=== PATIENT | male | born 1980 | race Caucasian/White ===

== ENCOUNTER 2020-10-21 06:45 | Emergency (ER) | payer OTHER, MEDICAID ==
[~2020-10-21] VITALS: Ht 170.2 cm; Wt 82.0 kg
[~2020-10-21 06:45] MED LIST: AMOX-424 MT; BUPR75TA8 MT; INSU100I24 SQ; LURA120T MT; TRAZ-251 MT
[2020-10-21 07:54] LABS: BASOPHILS % 1.3 % (0.0-2.0); EOSINOPHILS % 2.2 % (0.0-5.0); HEMOGLOBIN. 10.7 g/dL (14.0-18.0); LYMPHOCYTES % 12.9 % (20.0-50.0); MEAN CORPUSCULAR HEMOGLOBIN 29.5 pg (28.0-32.0); MEAN CORPUSCULAR VOLUME 93.5 fL (80.0-94.0); MEAN PLATELET VOLUME 9.8 fl (7.4-10.4); NEUTROPHILS % 79.6 % (40.0-76.0); PLATELET 345 x1000/uL (130-400); RED BLOOD CELL COUNT 3.63 mill/uL (4.7-6.1); RED CELL DISTRIBUTION WIDTH 14.1 % (11.6-14.6)
[2020-10-21 07:58] LABS: CLARITY URINE CLEAR (CLEAR); COLOR URINE YELLOW (YELLOW); KETONES URINE 2+ (NEGATIVE); LEUKOCYTE ESTERASE URINE NEGATIVE (NEGATIVE); NITRITE URINE NEGATIVE (NEGATIVE); OCCULT BLOOD URINE 1+ (NEGATIVE); PH URINE 5.5 (4.5-8.0); PROTEIN URINE 3+ (NEGATIVE); SPECIFIC GRAVITY URINE 1.019 (1.005-1.030); UROBILINOGEN URINE 0.2 E.U./dL (0.2-1.0)
[2020-10-21 08:00] LABS: CHLORIDE 103 mEq/L (98-107)
[2020-10-21] MEDS ORDERED: INSULIN REGULAR (HUMULIN R) 300UNITS/3ML VIAL SUBCUT ONE (08:00)
[2020-10-21 08:22] LABS: *AMPHETAMINES SCREEN URINE NEGATIVE (NEGATIVE); *BARBITURATES SCREEN URINE NEGATIVE (NEGATIVE); *BENZODIAZEPINES SCREEN URINE NEGATIVE (NEGATIVE); *COCAINE SCREEN URINE NEGATIVE (NEGATIVE); METHADONE URINE SCREEN NEGATIVE (NEGATIVE)
[2020-10-21 08:23] LABS: CANNABINOID URINE SCREEN PRESUMTIVE POSITIVE (NEGATIVE); OPIATES URINE SCREEN NEGATIVE (NEGATIVE); PHENCYCLIDINE URINE SCREEN NEGATIVE (NEGATIVE)
[2020-10-21] MEDS ORDERED: CALCIUM GLUCONATE 100MG/ML 10ML VIAL IV ONE (08:30)
[2020-10-21] MEDS ORDERED: SODIUM POLYSTYRENE SULFONATE 15 G/60 ML BOT PO ONE (08:30)
[2020-10-21] MEDS ORDERED: SODIUM BICARBONATE 8.4% 1 MEQ/ML 50ML SYR IV ONE (08:30)
[2020-10-21 12:28] VITALS: BP 186/86
== END 2020-10-21 13:06 | disposition left against medical advice (07) ==
LOC: ER 06:45 → CANBEDREQ 16:00
DX: E87.5 Hyperkalemia (principal); I12.9 Hypertensive chronic kidney disease with stage 1 through stage 4 chronic kidney disease, or unspecified chronic kidney disease; N18.9 Chronic kidney disease, unspecified; R60.1 Generalized edema; J84.9 Interstitial pulmonary disease, unspecified
CPT/HCPCS: 36415; 71045; 80053; 80305; 81003; 82962; 84484; 85025; 93005; 96372; 96374; 96375; 99285; J0610; J1815; J3490; Z7610

== ENCOUNTER 2022-05-30 04:38 | Inpatient (IN) | payer MEDICAID, OTHER ==
[2022-05-30] VITALS (63 sets, daily range): BP systolic 95–218; BP diastolic 59–150
[~2022-05-30] VITALS: Ht 175.3 cm; Wt 91.6 kg
[2022-05-30] MEDS ORDERED: NITROGLYCERIN 50MG PREMIX 250 ML IV ONE ×2 (04:45→05:15)
[2022-05-30] MEDS ORDERED: LORAZEPAM 2MG/ML CPJ IV ONE (05:15)
[2022-05-30 05:22] LABS: BASOPHILS % 1.3 % (0.0-2.0); EOSINOPHILS % 2.6 % (0.0-5.0); HEMATOCRIT. 39.1 % (42.0-52.0); HEMOGLOBIN. 12.9 g/dL (14.0-18.0); LYMPHOCYTES % 12.7 % (20.0-50.0); MEAN CORPUSCULAR HEMOGLOBIN 29.3 pg (28.0-32.0); MEAN CORPUSCULAR VOLUME 88.8 fL (80.0-94.0); MEAN PLATELET VOLUME 8.4 fl (7.4-10.4); MONOCYTES % 7.1 % (2.0-8.0); NEUTROPHILS % 76.3 % (40.0-76.0); PLATELET 481 x1000/uL (130-400); RED BLOOD CELL COUNT 4.41 mill/uL (4.7-6.1); RED CELL DISTRIBUTION WIDTH 20.6 % (11.6-14.6)
[2022-05-30 05:27] LABS: INR 0.9; PROTHROMBIN TIME 9.9 sec (9.6-11.0)
[2022-05-30 06:06] LABS: BG BASE EXCESS 3.2 mmol/L (-2.0-2.0); BG CARBOXYHEMOGLOBIN 1.4 % (0.5-1.5); BG DEOXYHEMOGLOBIN 10.1 % (0.0-5.0); BG FRACTION INSPIRED OXYGEN 100; BG HCO3 ACT 27.3 mmol/L (22.0-26.0); BG METHEMOGLOBIN 0.2 % (0.0-1.5); BG OXYGEN SATURATION 89.7 % (92.0-98.5); BG OXYHEMOGLOBIN 88.3 % (94.0-97.0); BG PCO2 40.1 mmHg (35.0-45.0); BG PH 7.451 (7.350-7.450); BG PO2 55.6 mmHg (75.0-100.0); BG SAMPLE SITE LEFT BRACHIAL; BG VENT MODE MASK - NRB
[2022-05-30 06:11] LABS: CHLORIDE 100 mEq/L (98-107)
[2022-05-30] MEDS ORDERED: FUROSEMIDE 40MG/4ML VIAL IVP SCH (08:30)
[2022-05-30] MEDS ORDERED: SODIUM POLYSTYRENE SULFONATE 15 G/60 ML BOT PO SCH (08:30)
[2022-05-30] MEDS ORDERED: DEXTROSE 50% WATER 50ML SYRINGE IV SCH (08:30)
[2022-05-30] MEDS ORDERED: IPRATROPIUM/ALBUTEROL 0.5-3(2.5)MG/3ML NEB HHN PRN (08:30)
[2022-05-30] MEDS ORDERED: IPRATROPIUM/ALBUTEROL 0.5-3(2.5)MG/3ML NEB HHN SCH ×2 (08:30→12:00)
[2022-05-30] MEDS ORDERED: INSULIN REGULAR (HUMULIN R) 300UNITS/3ML VIAL IV SCH (08:30)
[2022-05-30] MEDS ORDERED: CLONIDINE 0.1MG TABLET PO PRN (08:45)
[2022-05-30] MEDS ORDERED: ONDANSETRON HCL 4MG/2ML INJ IV PRN (08:45)
[2022-05-30] MEDS ORDERED: IPRATROPIUM/ALBUTEROL 0.5-3(2.5)MG/3ML NEB NEB PRN (08:45)
[2022-05-30] MEDS ORDERED: ACETAMINOPHEN 325MG TABLET PO PRN (08:45)
[2022-05-30] MEDS ORDERED: GUAIFENESIN 200MG/10ML SUGAR FREE UDC PO PRN (08:45)
[2022-05-30] MEDS ORDERED: DOCUSATE SODIUM 100MG CAPSULE PO PRN (08:45)
[2022-05-30] MEDS ORDERED: CALCIUM GLUCONATE 1GM PREMIX 50 ML IV SCH (09:00)
[2022-05-30] MEDS: FUROSEMIDE 40MG/4ML VIAL IV SCH (09:35)
[2022-05-30] MEDS ORDERED: PNEUMOCOCCAL 23-VAL P-SAC VAC 0.5 ML IM ONE (09:45)
[2022-05-30] MEDS ORDERED: INFLUENZA VACCINE 05/PF 0.5 ML SYRINGE IM ONE (09:45)
[2022-05-30 09:58] LABS: TOTAL IRON BINDING CAPACITY 231 ug/dL (250-450)
[2022-05-30] MEDS: DIPHENHYDRAMINE 50MG/ML VIAL IV PRN ×3 (10:06→22:32)
[2022-05-30] MEDS: ENOXAPARIN 30MG/0.3ML SYR SUBCUT SCH (10:06)
[2022-05-30] MEDS: IPRATROPIUM/ALBUTEROL 0.5-3(2.5)MG/3ML NEB NEB SCH ×3 (10:20→20:11)
[2022-05-30 10:24] LABS: BG BASE EXCESS 1.2 mmol/L (-2.0-2.0); BG DEOXYHEMOGLOBIN 2.2 % (0.0-5.0); BG FRACTION INSPIRED OXYGEN 100; BG HCO3 ACT 25.1 mmol/L (22.0-26.0); BG METHEMOGLOBIN 0.2 % (0.0-1.5); BG OXYGEN SATURATION 97.8 % (92.0-98.5); BG OXYHEMOGLOBIN 97.6 % (94.0-97.0); BG PH 7.449 (7.350-7.450); BG PO2 107.7 mmHg (75.0-100.0); BG TOTAL HEMOGLOBIN 11.5 g/dL (12.0-18.0); BG VENT MODE MASK - BIPAP
[2022-05-30 12:46] LABS: HEPATITIS B SURFACE ANTIGEN NEGATIVE
[2022-05-30] MEDS ORDERED: HYDRALAZINE HCL 25MG TABLET PO SCH (14:00)
[2022-05-30] MEDS ORDERED: NIFEDIPINE XL 60MG TAB PO SCH (15:30)
[2022-05-30] MEDS: HYDRALAZINE HCL 25MG TABLET PO SCH ×2 (15:50→22:22)
[2022-05-30] MEDS: LOSARTAN POTASSIUM 50 MG TABLET PO SCH (15:50)
[2022-05-30] MEDS ORDERED: AMLODIPINE 10MG TABLET PO SCH (16:00)
[2022-05-30] MEDS: CLONIDINE 0.2MG TABLET PO SCH (17:38)
[2022-05-30] MEDS: NICARDIPINE 50 MG in SODIUM CHLORIDE 0.9% 230 ML IV PRN (20:02)
[2022-05-30] MEDS: ATORVASTATIN CALCIUM 40MG TABLET PO SCH (22:21)
[2022-05-30] MEDS: FAMOTIDINE 20MG TABLET PO SCH (22:22)
[2022-05-31] VITALS (40 sets, daily range): BP systolic 105–165; BP diastolic 39–82
[2022-05-31] MEDS ORDERED: INSULIN LISPRO 100 UNITS/ML SUBCUT NR (01:30)
[2022-05-31] MEDS ORDERED: DEXTROSE 50% WATER 50ML SYRINGE IV PRN (01:30)
[2022-05-31] MEDS: IPRATROPIUM/ALBUTEROL 0.5-3(2.5)MG/3ML NEB NEB SCH ×4 (01:31→20:19)
[2022-05-31] MEDS: NICARDIPINE 50 MG in SODIUM CHLORIDE 0.9% 230 ML IV PRN (02:57)
[2022-05-31] MEDS ORDERED: INSULIN REGULAR (HUMULIN R) 300UNITS/3ML VIAL IV NR ×2 (03:15→06:45)
[2022-05-31] MEDS ORDERED: INSULIN GLARGINE 100 UNITS/ML SUBCUT NR ×2 (03:15→04:15)
[2022-05-31 03:22] LABS: BG BASE EXCESS -2.6 mmol/L (-2.0-2.0); BG CARBOXYHEMOGLOBIN 0.1 % (0.5-1.5); BG DEOXYHEMOGLOBIN 1.1 % (0.0-5.0); BG FRACTION INSPIRED OXYGEN 100; BG HCO3 ACT 21.1 mmol/L (22.0-26.0); BG METHEMOGLOBIN 0.1 % (0.0-1.5); BG OXYGEN SATURATION 98.9 % (92.0-98.5); BG OXYHEMOGLOBIN 98.7 % (94.0-97.0); BG PCO2 32.1 mmHg (35.0-45.0); BG PH 7.435 (7.350-7.450); BG PO2 159.9 mmHg (75.0-100.0); BG SAMPLE SITE RIGHT RADIAL; BG TOTAL HEMOGLOBIN 9.7 g/dL (12.0-18.0); BG VENT MODE MASK - BIPAP
[2022-05-31 03:33] LABS: HEMOGLOBIN. 10.1 g/dL (14.0-18.0); MEAN CORPUSCULAR HEMOGLOBIN 29.3 pg (28.0-32.0); MEAN CORPUSCULAR VOLUME 92.5 fL (80.0-94.0); MEAN PLATELET VOLUME 9.1 fl (7.4-10.4); PLATELET 377 x1000/uL (130-400); RED BLOOD CELL COUNT 3.46 mill/uL (4.7-6.1)
[2022-05-31 03:47] LABS: CHLORIDE 98 mEq/L (98-107)
[2022-05-31 03:58] LABS: HDL CHOLESTEROL 83 mg/dL (40-59); LDL CHOLESTEROL 67 mg/dL (5-100); PHOSPHORUS 3.3 mg/dL (2.5-4.9)
[2022-05-31 04:26] LABS: PLATELET ESTIMATE NORMAL
[2022-05-31] MEDS: BLOOD SUGAR DIAGNOSTIC STRIP TEST SCH ×15 (05:12→19:00)
[2022-05-31] MEDS ORDERED: ALBUTEROL (0.083%) 2.5MG/3ML NEB HHN NR (05:15)
[2022-05-31] MEDS ORDERED: SODIUM POLYSTYRENE SULFONATE 15 G/60 ML BOT PO NR (05:15)
[2022-05-31] MEDS: ACETAMINOPHEN 325MG TABLET PO PRN ×2 (05:34→17:33)
[2022-05-31] MEDS: HYDRALAZINE HCL 25MG TABLET PO SCH ×3 (05:34→22:01)
[2022-05-31] MEDS ORDERED: CALCIUM GLUCONATE 1GM PREMIX 50 ML IV NR (06:00)
[2022-05-31] MEDS ORDERED: DEXTROSE 50% WATER 50ML SYRINGE IV NR (06:45)
[2022-05-31] MEDS ORDERED: BLOOD SUGAR DIAGNOSTIC STRIP TEST SCH (07:50)
[2022-05-31] MEDS ORDERED: INSULIN LISPRO 100 UNITS/ML SUBCUT SCH (07:50)
[2022-05-31 07:53] LABS: BG BASE EXCESS -0.9 mmol/L (-2.0-2.0); BG CARBOXYHEMOGLOBIN 0.1 % (0.5-1.5); BG DEOXYHEMOGLOBIN 2.9 % (0.0-5.0); BG HCO3 ACT 22.9 mmol/L (22.0-26.0); BG METHEMOGLOBIN 0.2 % (0.0-1.5); BG OXYGEN SATURATION 97.1 % (92.0-98.5); BG OXYHEMOGLOBIN 96.8 % (94.0-97.0); BG PCO2 34.7 mmHg (35.0-45.0); BG PH 7.438 (7.350-7.450); BG PO2 92.3 mmHg (75.0-100.0); BG SAMPLE SITE RIGHT RADIAL; BG TOTAL HEMOGLOBIN 10.3 g/dL (12.0-18.0); BG VENT MODE MASK - NRB
[2022-05-31] MEDS: INSULIN LISPRO 100 UNITS/ML SUBCUT SCH ×6 (08:44→21:35)
[2022-05-31] MEDS: CLONIDINE 0.2MG TABLET PO SCH ×2 (09:00→20:38)
[2022-05-31] MEDS: LOSARTAN POTASSIUM 50 MG TABLET PO SCH (09:00)
[2022-05-31] MEDS: FUROSEMIDE 40MG/4ML VIAL IV SCH (09:00)
[2022-05-31] MEDS: ENOXAPARIN 30MG/0.3ML SYR SUBCUT SCH (10:00)
[2022-05-31] MEDS ORDERED: TRAMADOL 50MG TABLET PO SCH (12:45)
[2022-05-31] MEDS ORDERED: LIDOCAINE 5% PATCH TOP SCH (13:00)
[2022-05-31] MEDS: CEFTRIAXONE 1GM PREMIX 50 ML IV SCH ×2 (14:00→20:34)
[2022-05-31] MEDS: AZITHROMYCIN 500 MG in DEXT 5% WATER 250 ML IV SCH (14:00)
[2022-05-31] MEDS: FERROUS SULFATE 325MG TABLET PO SCH ×2 (17:10→17:32)
[2022-05-31] MEDS ORDERED: VANCOMYCIN 1500MG in DEXTROSE 5% WATER 250ML IV SCH (20:00)
[2022-05-31] MEDS: ALPRAZOLAM 0.5 MG TABLET PO PRN (21:31)
[2022-05-31] MEDS: ATORVASTATIN CALCIUM 40MG TABLET PO SCH (21:33)
[2022-05-31] MEDS: FAMOTIDINE 20MG TABLET PO SCH (21:33)
[2022-05-31] MEDS: INSULIN GLARGINE 100 UNITS/ML SUBCUT SCH (21:37)
[2022-05-31] MEDS: PIPERACILLIN/TAZOBACTAM 3.375 G in DEXTROSE 5% WATER 50 ML IV SCH (21:43)
[2022-05-31] MEDS: TRAMADOL 50MG TABLET PO PRN (21:43)
[2022-06-01] VITALS (14 sets, daily range): BP systolic 139–180; BP diastolic 69–97
[2022-06-01] MEDS: IPRATROPIUM/ALBUTEROL 0.5-3(2.5)MG/3ML NEB NEB SCH ×4 (01:11→20:40)
[2022-06-01] MEDS: ALPRAZOLAM 0.5 MG TABLET PO PRN (04:40)
[2022-06-01] MEDS: TRAMADOL 50MG TABLET PO PRN (04:44)
[2022-06-01 05:41] LABS: EOSINOPHILS % 1.1 % (0.0-5.0); HEMATOCRIT. 31.5 % (42.0-52.0); HEMOGLOBIN. 9.7 g/dL (14.0-18.0); LYMPHOCYTES % 7.7 % (20.0-50.0); MEAN CORPUSCULAR HEMOGLOBIN 29.1 pg (28.0-32.0); MEAN PLATELET VOLUME 8.5 fl (7.4-10.4); MONOCYTES % 6.5 % (2.0-8.0); NEUTROPHILS % 83.7 % (40.0-76.0); PLATELET 338 x1000/uL (130-400); RED BLOOD CELL COUNT 3.32 mill/uL (4.7-6.1); RED CELL DISTRIBUTION WIDTH 20.2 % (11.6-14.6)
[2022-06-01] MEDS: FERROUS SULFATE 325MG TABLET PO SCH ×3 (06:27→17:28)
[2022-06-01] MEDS: HYDRALAZINE HCL 100MG TABLET PO SCH ×3 (06:36→22:00)
[2022-06-01] MEDS: INSULIN LISPRO 100 UNITS/ML SUBCUT SCH ×7 (06:40→21:00)
[2022-06-01 08:15] LABS: CHLORIDE 97 mEq/L (98-107)
[2022-06-01] MEDS: CLONIDINE 0.2MG TABLET PO SCH ×2 (09:04→17:29)
[2022-06-01] MEDS: ENOXAPARIN 30MG/0.3ML SYR SUBCUT SCH (09:05)
[2022-06-01] MEDS: PIPERACILLIN/TAZOBACTAM 3.375 G in DEXTROSE 5% WATER 50 ML IV SCH ×2 (09:05→21:00)
[2022-06-01] MEDS: LOSARTAN POTASSIUM 50 MG TABLET PO SCH (09:05)
[2022-06-01] MEDS: FUROSEMIDE 40MG/4ML VIAL IV SCH (09:11)
[2022-06-01] MEDS: BLOOD SUGAR DIAGNOSTIC STRIP TEST SCH ×3 (11:34→21:00)
[2022-06-01] MEDS ORDERED: HYDRALAZINE HCL 100MG TABLET PO SCH (14:00)
[2022-06-01 14:54] LABS: BG BASE EXCESS 2.5 mmol/L (-2.0-2.0); BG CARBOXYHEMOGLOBIN 0.5 % (0.5-1.5); BG DEOXYHEMOGLOBIN 7.1 % (0.0-5.0); BG FRACTION INSPIRED OXYGEN 36; BG HCO3 ACT 26.4 mmol/L (22.0-26.0); BG METHEMOGLOBIN 0.3 % (0.0-1.5); BG OXYGEN SATURATION 92.8 % (92.0-98.5); BG OXYHEMOGLOBIN 92.1 % (94.0-97.0); BG PH 7.459 (7.350-7.450); BG SAMPLE SITE RIGHT RADIAL; BG TOTAL HEMOGLOBIN 10.2 g/dL (12.0-18.0); BG VENT MODE NASAL CANNULA
[2022-06-01] MEDS: CEFTRIAXONE 1GM PREMIX 50 ML IV SCH (15:28)
[2022-06-01] MEDS: AZITHROMYCIN 500 MG in DEXT 5% WATER 250 ML IV SCH (15:29)
[2022-06-01] MEDS: FAMOTIDINE 20MG TABLET PO SCH (21:00)
[2022-06-01] MEDS: ATORVASTATIN CALCIUM 40MG TABLET PO SCH (21:00)
[2022-06-01] MEDS: INSULIN GLARGINE 100 UNITS/ML SUBCUT SCH (22:00)
[2022-06-02] MEDS ORDERED: CEFTRIAXONE 1,000 MG in DEXTROSE 5% WATER 50 ML IV SCH (14:00)
== END 2022-06-01 22:52 | disposition left against medical advice (07) | DRG 720 ==
LOC: ER 04:38 → CVICU 06:20 → EDBEDREQ 06:26 → 7EST 05-31 14:17
PROVIDERS: ADMIT Hospitalist; ATTEND Hospitalist
PROC: 5A09357 Assistance with Respiratory Ventilation, Less than 24 Consecutive Hours, Continuous Positive Airway Pressure (ICD-10-PCS; principal; 2022-05-30)
PROC: 5A1D70Z Performance of Urinary Filtration, Intermittent, Less than 6 Hours Per Day (ICD-10-PCS; 2022-05-30)
PROC: 5A09357 Assistance with Respiratory Ventilation, Less than 24 Consecutive Hours, Continuous Positive Airway Pressure (ICD-10-PCS; 2022-05-31)
PROC: 5A1D70Z Performance of Urinary Filtration, Intermittent, Less than 6 Hours Per Day (ICD-10-PCS; 2022-05-31)
PROC: 5A09357 Assistance with Respiratory Ventilation, Less than 24 Consecutive Hours, Continuous Positive Airway Pressure (ICD-10-PCS; 2022-06-01)
PROC: 5A1D70Z Performance of Urinary Filtration, Intermittent, Less than 6 Hours Per Day (ICD-10-PCS; 2022-06-01)
DX: A41.9 Sepsis, unspecified organism (principal); J96.01 Acute respiratory failure with hypoxia; I50.33 Acute on chronic diastolic (congestive) heart failure; E43 Unspecified severe protein-calorie malnutrition; E87.3 Alkalosis; E83.51 Hypocalcemia; L03.221 Cellulitis of neck; D63.1 Anemia in chronic kidney disease; I13.2 Hypertensive heart and chronic kidney disease with heart failure and with stage 5 chronic kidney disease, or end stage renal disease; N18.6 End stage renal disease; E10.22 Type 1 diabetes mellitus with diabetic chronic kidney disease; D75.839 Thrombocytosis, unspecified; F12.90 Cannabis use, unspecified, uncomplicated; E87.5 Hyperkalemia; F14.90 Cocaine use, unspecified, uncomplicated; F19.10 Other psychoactive substance abuse, uncomplicated; Z53.29 Procedure and treatment not carried out because of patient's decision for other reasons; I16.1 Hypertensive emergency; E10.65 Type 1 diabetes mellitus with hyperglycemia; Z79.4 Long term (current) use of insulin; Z99.2 Dependence on renal dialysis; Z82.49 Family history of ischemic heart disease and other diseases of the circulatory system; Z68.29 Body mass index [BMI] 29.0-29.9, adult
CPT/HCPCS: 36415; 36600; 71045; 78580; 80048; 80053; 80061; 82375; 82805; 82962; 83036; 83540; 83550; 83605; 83735; 83880; 84100; 84145; 84484; 85025; 85379; 86705; 86709; 86803; 87340; 90935; 93005; 93306; 93970; 94640; 94660; 99291; J0456; J0610; J0696; J1200; J1650; J1815; J1940; J2060; J2543; J3370; J3490; J7050; J7060

== ENCOUNTER 2022-07-25 03:33 | Emergency (ER) | payer MEDICARE, MEDICAID ==
[~2022-07-25] VITALS: Ht 177.8 cm; Wt 80.0 kg
[2022-07-25 03:37] VITALS: TEMP 98.4; O2SAT 98
[2022-07-25 03:54] VITALS: RESP 28
[2022-07-25 04:06] LABS: BASOPHILS % 0.9 % (0.0-2.0); EOSINOPHILS % 1.5 % (0.0-5.0); HEMOGLOBIN. 13.7 g/dL (14.0-18.0); LYMPHOCYTES % 12.1 % (20.0-50.0); MEAN CORPUSCULAR HEMOGLOBIN 30.6 pg (28.0-32.0); MEAN CORPUSCULAR VOLUME 103.1 fL (80.0-94.0); NEUTROPHILS % 79.5 % (40.0-76.0); PLATELET 396 x1000/uL (130-400); RED BLOOD CELL COUNT 4.46 mill/uL (4.7-6.1); RED CELL DISTRIBUTION WIDTH 18.4 % (11.6-14.6)
[2022-07-25 04:14] LABS: CHLORIDE 82 mEq/L (98-107)
[2022-07-25] MEDS ORDERED: HYDRALAZINE 20MG/ML VIAL IV ONE (04:30)
[2022-07-25] MEDS ORDERED: INSULIN REGULAR (DRIP) 100 UNITS in SODIUM CHLORIDE 0.9% 99 ML IV ONE (05:00)
[2022-07-25] MEDS ORDERED: INSULIN REGULAR (HUMULIN R) 300UNITS/3ML VIAL IV ONE (05:00)
[2022-07-25 05:17] VITALS: BP 189/145; PULSE 109; RESP 12
[2022-07-25] MEDS ORDERED: INSULIN REGULAR 100U/100ML PMX 100 ML IV ONE (05:30)
== END 2022-07-25 05:20 | disposition left against medical advice (07) ==
LOC: ER 03:33
DX: E11.10 Type 2 diabetes mellitus with ketoacidosis without coma (principal); J96.90 Respiratory failure, unspecified, unspecified whether with hypoxia or hypercapnia; E11.65 Type 2 diabetes mellitus with hyperglycemia; N19 Unspecified kidney failure; E87.70 Fluid overload, unspecified; I10 Essential (primary) hypertension; Z20.822 Contact with and (suspected) exposure to COVID-19
CPT/HCPCS: 36415; 71045; 80053; 82962; 84484; 85025; 87040; 87426; 93005; 94660; 96374; 96375; 99291; C9803; J0360; J1815; J7050

== ENCOUNTER 2023-06-29 16:10 | Emergency (ER) | payer MEDICARE, MEDICAID ==
[~2023-06-29] VITALS: Ht 165.1 cm; Wt 77.0 kg
[2023-06-29 16:12] VITALS: O2SAT 97
[2023-06-29 16:49] LABS: BASOPHILS % 1.2 % (0.0-2.0); DIFFERENTIAL COMMENT 0; EOSINOPHILS % 5.7 % (0.0-5.0); HEMATOCRIT. 36.1 % (42.0-52.0); HEMOGLOBIN. 12.1 g/dL (14.0-18.0); LYMPHOCYTES % 10.9 % (20.0-50.0); MEAN CORPUSCULAR HEMOGLOBIN 33.9 pg (28.0-32.0); MEAN CORPUSCULAR HGB CONC 33.5 g/dL (31.0-37.0); MEAN CORPUSCULAR VOLUME 101.4 fL (80.0-94.0); MEAN PLATELET VOLUME 9.2 fl (7.4-10.4); MONOCYTES % 9.4 % (2.0-8.0); NEUTROPHILS % 72.8 % (40.0-76.0); PLATELET 432 x1000/uL (130-400); RED BLOOD CELL COUNT 3.56 mill/uL (4.7-6.1); RED CELL DISTRIBUTION WIDTH 15.3 % (11.6-14.6); WHITE BLOOD COUNT 8.8 x1000/uL (4.5-11.0)
[2023-06-29 16:55] LABS: CHLORIDE 92 mEq/L (98-107); POTASSIUM 3.9 mEq/L (3.5-5.1); SODIUM 134 mEq/L (136-145)
[2023-06-29 16:56] LABS: CALCIUM 9.7 mg/dL (8.7-10.4); CARBON DIOXIDE 28 mEq/L (21-32)
[2023-06-29 17:01] LABS: UREA NITROGEN BLOOD 33 mg/dL (9-23)
[2023-06-29 17:02] LABS: TROPONIN I HIGH SENSITIVITY 13 ng/L (3.0-53)
[2023-06-29 17:03] LABS: ALANINE AMINOTRANSFERASE 22 IU/L (10-49); ALBUMIN 4.2 g/dL (3.2-4.8); ASPARTATE AMINOTRANSFERASE 29 IU/L (<34)
[2023-06-29 17:04] LABS: BILIRUBIN TOTAL < 0.2 mg/dL (0.1-1.0); PROTEIN TOTAL 7.6 g/dL (6.0-8.3)
[2023-06-29 17:11] LABS: CREATININE 5.3 mg/dL (0.6-1.3); ETHANOL BLOOD < 10 mg/dL (<10); GLUCOSE 366 mg/dL (70-105)
[2023-06-29 17:24] LABS: BETA HYDROXYBUTYRATE 0.5 mMol/L (0.0-0.3)
[2023-06-29] MEDS ORDERED: AMLODIPINE 10MG TABLET PO ONE (19:00)
[2023-06-29] MEDS ORDERED: CLONIDINE 0.2MG TABLET PO ONE (19:00)
[2023-06-29] MEDS: CLONIDINE 0.1MG TABLET PO NR (19:15)
[2023-06-29] MEDS: AMLODIPINE 5MG TABLET PO NR (19:16)
[2023-06-29] MEDS: HYDROCODONE/ACETAMINOPHEN 5/325MG TABLET PO ONE (19:20)
[2023-06-29 19:34] VITALS: BP 194/92; PULSE 84; RESP 15; TEMP 97.5
[2023-06-29] MEDS ORDERED: HYDRALAZINE HCL 50MG TABLET PO SCH (21:00)
== END 2023-06-29 19:38 | disposition home or self-care (01) ==
LOC: ER 16:10
DX: I12.0 Hypertensive chronic kidney disease with stage 5 chronic kidney disease or end stage renal disease (principal); I16.0 Hypertensive urgency; M79.10 Myalgia, unspecified site; E11.22 Type 2 diabetes mellitus with diabetic chronic kidney disease; N18.6 End stage renal disease; R41.82 Altered mental status, unspecified
CPT/HCPCS: 36415; 71045; 72100; 72170; 73552; 80053; 80320; 82010; 83880; 84484; 85025; 93005; 99285; G0480

== ENCOUNTER 2023-07-22 22:41 | Inpatient (IN) | payer MEDICARE, MEDICAID ==
[~2023-07-22] VITALS: Ht 172.7 cm; Wt 82.6 kg
[2023-07-23] VITALS (14 sets, daily range): BP systolic 103–179; BP diastolic 47–84; PULSE 68–85; RESP 17–20; TEMP 97.7–98.1
[2023-07-23 00:04] LABS: HEMOGLOBIN. 10.3 g/dL (14.0-18.0); MEAN CORPUSCULAR HEMOGLOBIN 32.5 pg (28.0-32.0); MEAN CORPUSCULAR HGB CONC 33.2 g/dL (31.0-37.0); PLATELET 521 x1000/uL (130-400); RED BLOOD CELL COUNT 3.16 mill/uL (4.7-6.1); RED CELL DISTRIBUTION WIDTH 14.8 % (11.6-14.6); WHITE BLOOD COUNT 11.6 x1000/uL (4.5-11.0)
[2023-07-23 00:13] LABS: DIFFERENTIAL COMMENT 1
[2023-07-23 00:14] LABS: CHLORIDE 95 mEq/L (98-107); POTASSIUM 5.1 mEq/L (3.5-5.1); SODIUM 129 mEq/L (136-145)
[2023-07-23 00:16] LABS: CALCIUM 9.2 mg/dL (8.7-10.4); CARBON DIOXIDE 21 mEq/L (21-32)
[2023-07-23 00:21] LABS: TROPONIN I HIGH SENSITIVITY 14 ng/L (3.0-53)
[2023-07-23 00:22] LABS: ALANINE AMINOTRANSFERASE 35 IU/L (10-49); ASPARTATE AMINOTRANSFERASE 39 IU/L (<34)
[2023-07-23 00:23] LABS: ALBUMIN 4.1 g/dL (3.2-4.8); BILIRUBIN DIRECT 0.2 mg/dL (<=3.0); BILIRUBIN TOTAL 0.2 mg/dL (0.1-1.0); PROTEIN TOTAL 7.5 g/dL (6.0-8.3)
[2023-07-23 00:24] LABS: ETHANOL BLOOD < 10 mg/dL (<10); GLUCOSE 163 mg/dL (70-105)
[2023-07-23 00:25] LABS: UREA NITROGEN BLOOD 70 mg/dL (9-23)
[2023-07-23 00:26] LABS: CREATININE 6.9 mg/dL (0.6-1.3)
[2023-07-23] MEDS: HYDRALAZINE 20MG/ML VIAL IV ONE (02:06)
[2023-07-23] MEDS: CLONIDINE 0.3MG TABLET PO ONE (03:05)
[2023-07-23] MEDS: AMLODIPINE 10MG TABLET PO ONE (03:06)
[2023-07-23 04:26] LABS: OVALOCYTES 1+; PLATELET ESTIMATE SLIGHTLY INCREASED
[2023-07-23 04:47] LABS: CLARITY URINE CLEAR (CLEAR); COLOR URINE YELLOW (YELLOW); GLUCOSE URINE 3+ (NEGATIVE); KETONES URINE TRACE (NEGATIVE); LEUKOCYTE ESTERASE URINE NEGATIVE (NEGATIVE); NITRITE URINE NEGATIVE (NEGATIVE); OCCULT BLOOD URINE TRACE (NEGATIVE); PH URINE 7.5 (4.5-8.0); PROTEIN URINE 4+ (NEGATIVE); UROBILINOGEN URINE 0.2 E.U./dL (0.2-1.0)
[2023-07-23 04:54] LABS: *AMPHETAMINES SCREEN URINE NEGATIVE (NEGATIVE); *BARBITURATES SCREEN URINE NEGATIVE (NEGATIVE); *BENZODIAZEPINES SCREEN URINE NEGATIVE (NEGATIVE); *COCAINE SCREEN URINE NEGATIVE (NEGATIVE); METHADONE URINE SCREEN NEGATIVE (NEGATIVE); OPIATES URINE SCREEN PRESUMPTIVE POSITIVE (NEGATIVE); PHENCYCLIDINE URINE SCREEN NEGATIVE (NEGATIVE)
[2023-07-23 04:55] LABS: CANNABINOID URINE SCREEN NEGATIVE (NEGATIVE); ECSTASY MDMA SCREEN URINE NEGATIVE (NEGATIVE)
[2023-07-23 05:17] LABS: RBC URINE 0-2 /hpf (0-2); SQUAMOUS EPITHELIAL CELL URINE FEW /lpf (RARE/1+); WBC URINE 0-2 /hpf (0-2)
[2023-07-23 05:19] LABS: BACTERIA URINE NONE SEEN
[2023-07-23] MEDS ORDERED: ONDANSETRON HCL 4MG/2ML INJ IV PRN (10:15)
[2023-07-23] MEDS ORDERED: ACETAMINOPHEN 325MG TABLET PO PRN ×2 (10:15)
[2023-07-23] MEDS ORDERED: DEXTROSE 50% WATER 50ML SYRINGE IV PRN (10:15)
[2023-07-23] MEDS ORDERED: DOCUSATE SODIUM 100MG CAPSULE PO PRN (10:15)
[2023-07-23] MEDS ORDERED: IPRATROPIUM/ALBUTEROL 0.5-3(2.5)MG/3ML NEB HHN PRN (10:15)
[2023-07-23] MEDS: BLOOD SUGAR DIAGNOSTIC STRIP TEST SCH (11:32)
[2023-07-23] MEDS: CLONIDINE 0.1MG TABLET PO PRN (11:42)
[2023-07-23] MEDS: INSULIN LISPRO 100 UNITS/ML SUBCUT SCH ×2 (11:43→22:25)
[2023-07-23 14:27] LABS: HEPATITIS B SURFACE ANTIGEN NEGATIVE (Negative)
[2023-07-23 14:48] LABS: HEPATITIS A AB IGM NEGATIVE (Negative)
[2023-07-23 14:49] LABS: HEPATITIS B CORE AB IGM NEGATIVE (Negative); HEPATITIS C AB NON REACTIVE (Neg) (Negative)
[2023-07-23] MEDS: HYDROCODONE/ACETAMINOPHEN 5/325MG TABLET PO PRN (16:24)
[2023-07-23] MEDS ORDERED: HYDR100T31 PO (18:38)
[2023-07-23] MEDS ORDERED: NIFE-72 PO (18:38)
[2023-07-23] MEDS ORDERED: FURO80TA3 PO (18:38)
[2023-07-23] MEDS ORDERED: CLON0.1T PO (18:38)
[2023-07-23] MEDS ORDERED: SPIR50TA5 PO (18:38)
[2023-07-23] MEDS ORDERED: BACL-141 PO (18:38)
[2023-07-23] MEDS ORDERED: FLUO20CA39 PO (18:38)
[2023-07-23] MEDS ORDERED: LABE200T9 PO (18:38)
[2023-07-23] MEDS: INSULIN GLARGINE 100 UNITS/ML SUBCUT SCH (21:20)
[2023-07-24] VITALS (7 sets, daily range): BP systolic 134–185; BP diastolic 62–82; PULSE 70–76; RESP 17–21; TEMP 97.5–99
[2023-07-24 06:01] LABS: BASOPHILS % 1.7 % (0.0-2.0); EOSINOPHILS % 2.7 % (0.0-5.0); HEMATOCRIT. 31.1 % (42.0-52.0); HEMOGLOBIN. 10.4 g/dL (14.0-18.0); LYMPHOCYTES % 7.5 % (20.0-50.0); MEAN CORPUSCULAR HEMOGLOBIN 32.5 pg (28.0-32.0); MEAN CORPUSCULAR HGB CONC 33.5 g/dL (31.0-37.0); MEAN CORPUSCULAR VOLUME 96.9 fL (80.0-94.0); MONOCYTES % 11.1 % (2.0-8.0); PLATELET 471 x1000/uL (130-400); RED BLOOD CELL COUNT 3.21 mill/uL (4.7-6.1); RED CELL DISTRIBUTION WIDTH 15.1 % (11.6-14.6); WHITE BLOOD COUNT 10.2 x1000/uL (4.5-11.0)
[2023-07-24 06:09] LABS: POTASSIUM 4.2 mEq/L (3.5-5.1)
[2023-07-24 06:10] LABS: CALCIUM 8.9 mg/dL (8.7-10.4)
[2023-07-24 06:18] LABS: CREATININE 5.7 mg/dL (0.6-1.3)
[2023-07-24] MEDS ORDERED: NALOXONE HCL 0.4MG/ML VIAL IV PRN (07:45)
[2023-07-24] MEDS: FLUOXETINE HCL 20MG CAPSULE PO SCH (08:51)
[2023-07-24] MEDS: NIFEDIPINE XL 60MG TAB PO SCH (08:51)
[2023-07-24] MEDS: HYDRALAZINE HCL 100MG TABLET PO SCH (08:51)
[2023-07-24] MEDS: FOLIC ACID/VITAMIN B COMP W-C TABLET PO SCH (08:52)
[2023-07-24] MEDS: LABETALOL HCL 200MG TABLET PO SCH (08:52)
[2023-07-24] MEDS ORDERED: SPIRONOLACTONE 50MG TABLET PO SCH (09:00)
[2023-07-24] MEDS: SEVELAMER CARBONATE 800 MG TABLET PO SCH (12:16)
[2023-07-24] MEDS: TRAZODONE HCL 50MG TABLET PO SCH (20:55)
[2023-07-25] VITALS (15 sets, daily range): BP systolic 117–151; BP diastolic 54–74; PULSE 72–80; RESP 16–18; TEMP 97.7–98.2; O2SAT 97
[2023-07-25 06:03] LABS: POTASSIUM 4.4 mEq/L (3.5-5.1)
[2023-07-25 06:04] LABS: CALCIUM 8.6 mg/dL (8.7-10.4)
[2023-07-25 06:07] LABS: BASOPHILS % 1.3 % (0.0-2.0); EOSINOPHILS % 3.6 % (0.0-5.0); HEMATOCRIT. 26.2 % (42.0-52.0); HEMOGLOBIN. 9.1 g/dL (14.0-18.0); LYMPHOCYTES % 10.3 % (20.0-50.0); MEAN CORPUSCULAR HEMOGLOBIN 33.4 pg (28.0-32.0); MEAN CORPUSCULAR HGB CONC 34.8 g/dL (31.0-37.0); MEAN PLATELET VOLUME 9.2 fl (7.4-10.4); MONOCYTES % 11.2 % (2.0-8.0); NEUTROPHILS % 73.6 % (40.0-76.0); PLATELET 405 x1000/uL (130-400); RED BLOOD CELL COUNT 2.73 mill/uL (4.7-6.1); RED CELL DISTRIBUTION WIDTH 15.3 % (11.6-14.6); WHITE BLOOD COUNT 8.8 x1000/uL (4.5-11.0)
[2023-07-25 06:30] LABS: CREATININE 6.9 mg/dL (0.6-1.3)
== END 2023-07-25 18:04 | disposition home health service (06) | DRG 682 ==
LOC: ER 22:41 → 8WST 07-23 02:08 → EDBEDREQ 07-23 02:21
PROVIDERS: ADMIT Internal Medicine; ATTEND Internal Medicine
PROC: 5A1D70Z Performance of Urinary Filtration, Intermittent, Less than 6 Hours Per Day (ICD-10-PCS; principal; 2023-07-23)
PROC: 5A1D70Z Performance of Urinary Filtration, Intermittent, Less than 6 Hours Per Day (ICD-10-PCS; 2023-07-25)
DX: I12.0 Hypertensive chronic kidney disease with stage 5 chronic kidney disease or end stage renal disease (principal); N18.6 End stage renal disease; E87.1 Hypo-osmolality and hyponatremia; D64.9 Anemia, unspecified; E10.22 Type 1 diabetes mellitus with diabetic chronic kidney disease; F10.10 Alcohol abuse, uncomplicated; Y90.9 Presence of alcohol in blood, level not specified; D72.829 Elevated white blood cell count, unspecified; Z99.2 Dependence on renal dialysis; Z79.84 Long term (current) use of oral hypoglycemic drugs; Z91.199 Patient's noncompliance with other medical treatment and regimen due to unspecified reason; Z79.4 Long term (current) use of insulin
CPT/HCPCS: 36415; 71045; 80048; 80076; 80305; 80320; 81003; 82962; 83036; 83880; 84484; 85025; 86705; 86709; 87340; 90935; 99285; J0360; J1815; G0480